=== PATIENT | female | born 1985 | race Native Hawaiian/Other Pacific Islander ===

== ENCOUNTER 2024-02-15 09:11 | Observation (INO) ==
[2024-02-15] MEDS: NS 0.9% 1000 ml BAG 1,000 ML IV ONE (09:45)
[2024-02-15] MEDS: Ondansetron 4 mg VIAL 2 MG/ML 2 ml VIAL IV ONE (09:45)
[2024-02-15 09:57] LABS: ABS Lymphocytes 1.7 10^3/uL (1.0-4.8); ABS Monocytes 0.3 10^3/uL (0.0-0.9); Eosinophil % 0.2 %; Hematocrit 24.5 % (35-45); Hemoglobin 8.3 g/dL (11.5-14.3); Lymphocyte % 18.9 %; Mean Corpuscular Hemoglobin 29.9 pg (27-33); Mean Corpuscular Hgb Conc 34.1 g/dL (31-36); Mean Corpuscular Volume 87.8 fL (80-97); Mean Platelet Volume 8.4 fL (7.5-11.2); Platelet Count 214 10^3/uL (150-450); Red Blood Count 2.79 10^6/uL (3.63-4.92); White Blood Count 9.1 10^3/uL (3.8-11.8)
[2024-02-15 10:28] LABS: Activated Partial Thrombo Time 24.3 seconds (26.0-38.0); INR 1.18 (0.85-1.14)
[2024-02-15 10:33] LABS: ALT 12 U/L (7-52); AST 9 U/L (13-39); Albumin 3.6 g/dL (3.5-5.7); Albumin/Globulin Ratio 1.9 (1-3); Alkaline Phosphatase 49 U/L (35-149); Anion Gap 7 mmol/L (2-16); Blood Urea Nitrogen 17 mg/dL (6-24); CO2 Carbon Dioxide 22 mmol/L (22-32); Calcium 8.4 mg/dL (8.6-10.3); Chloride 105 mmol/L (101-111); Creatinine, Serum 0.81 mg/dL (0.51-0.95); Globulin 1.9 g/dL (2-4); Glucose 155 mg/dL (70-100); Potassium 3.9 mmol/L (3.5-5.0); Sodium 134 mmol/L (135-145); Total Bilirubin 0.4 mg/dL (0.2-1.0); Total Protein 5.5 g/dL (6.4-8.9); eGFR CKD-EPI 94.1 (>60)
[2024-02-15 10:40] LABS: HCG Pregnancy < 0.60 mIU/mL
[2024-02-15 10:59] LABS: Hemoglobin 7.3 g/dL (11.5-14.3); Mean Corpuscular Hemoglobin 29.2 pg (27-33); Mean Corpuscular Volume 88.4 fL (80-97); Mean Platelet Volume 8.2 fL (7.5-11.2); Platelet Count 201 10^3/uL (150-450); Red Blood Count 2.49 10^6/uL (3.63-4.92); White Blood Count 11.1 10^3/uL (3.8-11.8)
[2024-02-15 11:13] LABS: Urine Appearance Cloudy; Urine Color Red
[2024-02-15 11:21] LABS: Urine Specific Gravity 1.032 (1.002-1.030)
[2024-02-15 11:30] LABS: Urine Bacteria Absent /HPF (Absent); Urine Red Blood Cell 3+(>10/hpf) /HPF (0-Trace); Urine White Blood Cell Absent /HPF (0-Trace)
[2024-02-15] MEDS: Conjugated Estrogens 0.625 TAB PO SCH ×2 (12:38→12:42)
[2024-02-15 15:54] LABS: Hematocrit 24.1 % (35-45); Hemoglobin 8.2 g/dL (11.5-14.3); Mean Corpuscular Hemoglobin 29.9 pg (27-33); Mean Platelet Volume 8.3 fL (7.5-11.2); Platelet Count 169 10^3/uL (150-450); Red Blood Count 2.73 10^6/uL (3.63-4.92); Red Cell Distribution Width 13.6 % (12-17); White Blood Count 11.6 10^3/uL (3.8-11.8)
[2024-02-15] MEDS: CMC:Estradiol 1 mg TAB (NF) PO SCH (19:03)
[2024-02-15] MEDS: Lactated Ringers 1000 ml BAG 1,000 ML IV SCH (19:43)
[2024-02-15 22:09] LABS: Hemoglobin 7.6 g/dL (11.5-14.3)
[2024-02-16 07:05] LABS: ABS Eosinophils 0.1 10^3/uL (0.0-0.5); ABS Lymphocytes 2.9 10^3/uL (1.0-4.8); ABS Monocytes 0.4 10^3/uL (0.0-0.9); ABS Neutrophils 4.5 10^3/uL (1.5-7.6); ABS Nucleated RBC 0.02 10^3/ul; Eosinophil % 0.7 %; Hematocrit 22.2 % (35-45); Hemoglobin 7.9 g/dL (11.5-14.3); Lymphocyte % 36.4 %; Mean Corpuscular Hemoglobin 31.1 pg (27-33); Mean Corpuscular Hgb Conc 35.6 g/dL (31-36); Mean Corpuscular Volume 87.4 fL (80-97); Mean Platelet Volume 7.9 fL (7.5-11.2); Nucleated Red Blood Cells % 0.3 %/100WBC (0.0-0.8); Platelet Count 161 10^3/uL (150-450); Red Blood Count 2.54 10^6/uL (3.63-4.92); White Blood Count 7.9 10^3/uL (3.8-11.8)
[2024-02-16 07:45] LABS: Calcium 7.5 mg/dL (8.6-10.3); Creatinine, Serum 0.68 mg/dL (0.51-0.95); Magnesium 1.9 mg/dL (1.9-2.7); Potassium 3.7 mmol/L (3.5-5.0); eGFR CKD-EPI 112.8 (>60)
[2024-02-16 09:31] VITALS: BP 101/62
== END 2024-02-16 15:25 | disposition home or self-care (01) ==
LOC: ED 09:11 → EDHOLD 09:11 → MEDTELE 20:21
PROVIDERS: ADMIT Student in an Organized Health Care Education/Training Program; ATTEND Student in an Organized Health Care Education/Training Program